=== PATIENT | male | born 1945 | race Caucasian/White ===

== ENCOUNTER 2017-11-23 17:11 | Emergency (ER) | payer MEDICARE, OTHER ==
[2017-11-23] MEDS ORDERED: Lidocaine 2% Jelly 10 ML Urojet MUCMEM ONE (17:58)
--- NOTE | 2017-11-23 18:01 | EDM.PDOC ---
ED HPI GENERAL MEDICAL PROBLEM - General Chief Complaint: Genitourinary Problem Stated Complaint: POSS. 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 Tabor. He had seen Dr. Tabor in clinic this morning lab work identified him to have significant renal insufficiency with a creatinine of 6.6 and a BUN of 70. Dr. Tabor appreciated lower abdominal fullness and was concerned that he may be in urinary retention. Patient reports that he is able to void but does to have a feeling of incomplete emptying of his urinary bladder probably for the last 3 months. No abdominal pain. Some issues with constipation lately which have been unusual for him. He said previous appendectomy. He denies any nausea vomiting denies feeling lightheaded or dizzy. He takes no medication other than what was recently prescribed to him. He had a 7 day course of Cipro 500 mg daily started 2 weeks ago for one week. He was started back on Cipro today because of some burning on urination which precipitated today's investigations. Once he starts to void the burning goes away. He thought the at the initial dose of Cipro did in fact improve symptoms for short period of time patient has nocturia about 3- 4 times per night. Recognizes that his pants feel tight across his lower abdomen. Reported weight loss of 12 pounds in the last 3 months. Usually takes no medications. He was started on Cipro 250 mg twice a day today and has taken his first tablet Onset: Unknown/Unsure (He believes that he's been struggling a bit with passage of urine since July of this year. Addend applied to have significant renal insufficiency today by lab tests done at [facility] Onset Date: 11/23/17 Duration: Week(s): Location: Reports: Other (Pain with initiation of voiding.) Quality: Reports: Burning Severity: Moderate (Urinary burning discomfort just at the initiation avoiding the last few days) Worsens with: Reports: None Context: Denies: Activity, Exercise, Lifting, Sick Contact, Trauma, Other Associated Symptoms: Reports: Loss of Appetite, Other (Feels that his lower abdomen is mildly distended.Pants don't fit quite so well. Is tight.). Denies: Confusion, Chest Pain, Cough, cough w sputum, Diaphoresis, Fever/Chills, Headaches, Malaise, Nausea/Vomiting, Rash, Seizure, Shortness of Breath, Syncope , Weakness Treatments [employer]: Reports: Other (see below) (Currently started on Cipro 500 mg daily today) - Related Data Allergies Allergy/AdvReac Type Severity Reaction Status Date / Time amoxicillin [From Augmentin] Allergy Rash Verified 11/23/17 17:18 clavulanic acid Allergy Rash Verified 11/23/17 17:18 [From Augmentin] Home Meds: Home Meds . [No Known Home Meds] 11/23/17 [History] Past Medical History HEENT History: Reports: Impaired Vision Genitourinary History: Reports: Prostate Disorder (By history has benign prostatic hypertrophy.), Other (See Below) (Suspect recent problems with prostatitis causing current symptoms) - Past Surgical History HEENT Surgical History: Reports: Tonsillectomy GI Surgical History: Reports: Appendectomy Social & Family History - Tobacco Use Smoking Status *Q: Current Every Day Smoker Years of Tobacco use: 20 Packs/Tins Daily: 0.5 - Caffeine Use Caffeine Use: Reports: Coffee - Recreational Drug Use Recreational Drug Use: No - Living Situation & Occupation Living situation: Reports: Occupation: Retired ED ROS GENERAL - Review of Systems Review Of Systems: See Below Constitutional: Reports: Weight Loss (Reports about a 12 pound weight loss over the last 3 months). Denies: Fever, Chills, Malaise, Weakness, Fatigue HEENT: Reports: Glasses Respiratory: Reports: No Symptoms Cardiovascular: Reports: No Symptoms Endocrine: Reports: No Symptoms GI/Abdominal: Reports: Constipation, Decreased Appetite (Location part because patient which is unusual for him over the last few weeks.), Distension (Feels his lower abdomen is distended and pants feel tight.). Denies: Difficulty Swallowing, Flatus, Hematemesis, Hematochezia : Reports: Frequency, Other (Feeling of incomplete bladder emptying. Nocturia 4.) Musculoskeletal: Reports: Other (Occasional joint pain low back knees and hips.) Skin: Reports: No Symptoms Neurological: Reports: No Symptoms Psychiatric: Reports: No Symptoms Hematologic/Lymphatic: Reports: No Symptoms Immunologic: Reports: No Symptoms ED EXAM, RENAL/ - Physical Exam Exam: See Below Exam Limited By: No Limitations General Appearance: Alert, WD/WN, No Apparent Distress, Other (Appears a little pallid and sallow in color.) Eye Exam: Bilateral Eye: Normal Inspection, Other (Peripheral margins are white bilaterally.) Throat/Mouth: Normal Inspection, Normal Lips, Normal Teeth, Normal Gums, Normal Oropharynx Head: Atraumatic, Normocephalic Neck: Normal Inspection, Supple, Non-Tender, Full Range of Motion. No: Lymphadenopathy (L), Lymphadenopathy (R) Respiratory/Chest: No Respiratory Distress, Lungs Clear, Normal Breath Sounds, No Accessory Muscle Use Cardiovascular: Normal Peripheral Pulses, Regular Rate, Rhythm, No Edema, No Gallop, No Murmur, No Rub GI/Abdominal: No Organomegaly, No Abnormal Bruit, No Mass, Pelvis Stable, Distended (Patient has a distended lower abdomen and firm palpation and urinary bladder clinically is palpable about 2 cm above the umbilicus. Dull to percussion from the umbilicus to the pubic symphysis.), Abnormal Bowel Sounds ( Bowel sounds are present but decreased from normal), Other (He has only slight discomfort on firm palpation of his clinically full urinary bladder.) (Male) Exam: Circumcised Back Exam: Normal Inspection, Full Range of Motion. No: CVA Tenderness (L), CVA Tenderness (R) Extremities: Normal Inspection, Normal Range of Motion, Non-Tender, No Pedal Edema, Other (Hands are white with lack of any color to his palmar creases.) Neurological: Alert, Oriented, CN II-XII Intact, Normal Cognition, Normal Gait Psychiatric: Normal Affect, Normal Mood Skin Exam: Warm, Dry, Intact, Normal Color, No Rash Course - Vital Signs Last Recorded V/S: Last Vital Signs Temp 36.6 C 11/23/17 17:16 Pulse 103 H 11/23/17 17:16 Resp 18 11/23/17 17:16 BP 155/78 H 11/23/17 17:16 Pulse Ox 100 11/23/17 17:16 - Orders/Labs/Meds Orders: Active Orders 24 hr Category Date Time Status Bladder Scan [RC] ASDIRECTED Care 11/23/17 17:57 Active EKG Documentation Completion [RC] STAT Care 11/23/17 19:08 Active Insert Harkins Catheter [Insert Urinary Catheter] [OM.PC] Care 11/23/17 18:00 Ordered Q24H Urinary Catheter Assessment [RC] ASDIRECTED Care 11/23/17 18:00 Active CULTURE URINE [RM] Stat Lab 11/23/17 20:08 Ordered Sodium Chloride 0.9% [Normal Saline] 1,000 ml Med 11/23/17 18:15 Active IV ASDIRECTED cefTRIAXone [Rocephin] 2 gm Med 11/23/17 20:10 Active Sodium Chloride 0.9% [Normal Saline] 100 ml IV ONETIME Medication Orders Sodium Chloride (Normal Saline) 1,000 mls @ 100 mls/hr IV ASDIRECTED [facility] Last Admin: 11/23/17 18:10 Dose: 100 mls/hr Ceftriaxone Sodium 2 gm/ (Sodium Chloride) 100 mls @ 100 mls/hr IV ONETIME ONE Stop: 11/23/17 21:09 Last Admin: 11/23/17 20:15 Dose: 100 mls/hr Labs: Laboratory Tests 11/23/17 11/23/17 11/23/17 Range/Units 18:25 19:25 19:25 WBC 7.59 (4.23-9.07) K/mm3 RBC 2.52 L (4.63-6.08) M/mm3 Hgb 6.9 L* (13.7-17.5) gm/L Hct 22.2 L (40.1-51.0) % MCV 88.1 (79.0-92.2) fl MCH 27.4 (25.7-32.2) pg MCHC 31.1 L (32.2-35.5) g/dl RDW Std Deviation 59.4 H (35.1-43.9) fL Plt Count 370 H (163-337) K/mm3 MPV 9.1 L (9.4-12.3) fl Neutrophils % (Manual) 78 H (40-60) % Band Neutrophils % 0 (0-10) % Lymphocytes % (Manual) 11 L (20-40) % Atypical Lymphs % 0 % Monocytes % (Manual) 5 (2-10) % Eosinophils % (Manual) 5 (0.8-7.0) % Basophils % (Manual) 1 (0.2-1.2) Platelet Estimate Adequate Plt Morphology Comment Normal Hypochromasia 1+ slight Poikilocytosis 2+ moderate Anisocytosis 1+ slight Microcytosis 1+ slight RBC Morph Comment Not Reportable Sodium 138 (136-145) mEq/L Potassium 5.4 H (3.5-5.1) mEq/L Chloride 110 H (98-107) mEq/L Carbon Dioxide 18 L (21-32) mEq/L Anion Gap 15.4 H (5-15) BUN 75 H (7-18) mg/dL Creatinine 6.4 H (0.7-1.3) mg/dL Est Cr Clr Drug Dosing 10.78 mL/min Estimated GFR (MDRD) 9 (>60) mL/min BUN/Creatinine Ratio 11.7 L (14-18) Glucose 92 (83-115) mg/dL Calcium 8.3 L (8.5-10.1) mg/dL Total Bilirubin 0.2 (0.2-1.0) mg/dL AST 12 L (15-37) U/L ALT 16 (16-63) U/L Alkaline Phosphatase 108 (46-116) U/L C-Reactive Protein 6.4 H* (<1.0) mg/dL Total Protein 7.1 (6.4-8.2) g/dl Albumin 2.2 L (3.4-5.0) g/dl Globulin 4.9 gm/dL Albumin/Globulin Ratio 0.5 L (1-2) PSA Screen (0.0-4.0) ng/mL Urine Color Yellow (Yellow) Urine Appearance Clear (Clear) Urine pH 6.0 (5.0-8.0) Ur Specific [place] 1.020 (1.005-1.030) Urine Protein 1+ H (Negative) Urine Glucose (UA) Negative (Negative) Urine Ketones Negative (Negative) Urine Occult Blood 2+ H (Negative) Urine Nitrite Negative (Negative) Urine Bilirubin Negative (Negative) Urine Urobilinogen 0.2 (0.2-1.0) Ur Leukocyte Esterase 2+ H (Negative) Urine RBC 10-20 H (0-5) /hpf Urine WBC 10-20 H (0-5) /hpf Urine WBC Clumps Rare (NOT SEEN) /hpf Ur Epithelial Cells 0-5 (0-5) /hpf Urine Bacteria Moderate H (FEW) /hpf Urine Mucus Few (FEW) /hpf 09/24/18 Range/Units 19:25 WBC (4.23-9.07) K/mm3 RBC (4.63-6.08) M/mm3 Hgb (13.7-17.5) gm/L Hct (40.1-51.0) % MCV (79.0-92.2) fl MCH (25.7-32.2) pg MCHC (32.2-35.5) g/dl RDW Std Deviation (35.1-43.9) fL Plt Count (163-337) K/mm3 MPV (9.4-12.3) fl Neutrophils % (Manual) (40-60) % Band Neutrophils % (0-10) % Lymphocytes % (Manual) (20-40) % Atypical Lymphs % % Monocytes % (Manual) (2-10) % Eosinophils % (Manual) (0.8-7.0) % Basophils % (Manual) (0.2-1.2) Platelet Estimate Plt Morphology Comment Hypochromasia Poikilocytosis Anisocytosis Microcytosis RBC Morph Comment Sodium (136-145) mEq/L Potassium (3.5-5.1) mEq/L Chloride (98-107) mEq/L Carbon Dioxide (21-32) mEq/L Anion Gap (5-15) BUN (7-18) mg/dL Creatinine (0.7-1.3) mg/dL Est Cr Clr Drug Dosing mL/min Estimated GFR (MDRD) (>60) mL/min BUN/Creatinine Ratio (14-18) Glucose (83-115) mg/dL Calcium (8.5-10.1) mg/dL Total Bilirubin (0.2-1.0) mg/dL AST (15-37) U/L ALT (16-63) U/L Alkaline Phosphatase (46-116) U/L C-Reactive Protein (<1.0) mg/dL Total Protein (6.4-8.2) g/dl Albumin (3.4-5.0) g/dl Globulin gm/dL Albumin/Globulin Ratio (1-2) PSA Screen 1.9 (0.0-4.0) ng/mL Urine Color (Yellow) Urine Appearance (Clear) Urine pH (5.0-8.0) Ur Specific [place] (1.005-1.030) Urine Protein (Negative) Urine Glucose (UA) (Negative) Urine Ketones (Negative) Urine Occult Blood (Negative) Urine Nitrite (Negative) Urine Bilirubin (Negative) Urine Urobilinogen (0.2-1.0) Ur Leukocyte Esterase (Negative) Urine RBC (0-5) /hpf Urine WBC (0-5) /hpf Urine WBC Clumps (NOT SEEN) /hpf Ur Epithelial Cells (0-5) /hpf Urine Bacteria (FEW) /hpf Urine Mucus (FEW) /hpf Meds: Medications Generic Name Dose Route Start Last Admin Trade Name Freq PRN Reason Stop Dose Admin Sodium Chloride 1,000 mls @ 100 mls/hr 11/23/17 18:15 11/23/17 18:10 Normal Saline IV 100 mls/hr ASDIRECTED TOM Administration Ceftriaxone Sodium 2 gm/ 100 mls @ 100 mls/hr 11/23/17 20:10 11/23/17 20:15 Sodium Chloride IV 11/23/17 21:09 100 mls/hr ONETIME ONE Administration Discontinued Medications Generic Name Dose Route Start Last Admin Trade Name Freq PRN Reason Stop Dose Admin Lidocaine HCl 10 ml 11/23/17 17:58 11/23/17 18:10 Xylocaine 2% Jelly MUCMEM 11/23/17 17:59 10 ml ONETIME ONE Administration - Radiology Interpretation Free Text/Narrative:: 72-year-old male presents to the ED at the request of his primary care physician Dr. Jaye Tabor. He was seen earlier this morning in the clinic due to painful initiation of voiding. No symptoms 2 weeks ago and was treated with a seven-day course of Cipro dosage unknown. Lab work done today and he hasn 't had lab work done for many months. Labs revealed that he was suffering significant renal insufficiency with a creatinine of 6.6 and a BUN of 70. He also was anemic with hemoglobin of 7.9. And hematocrit of 25.1. MCV was normal at 89.3. Was apparently 7.2. Patient is not diabetic. Glucose today was 104. Bicarbonate was 18. Slightly low calcium was 8.4. Chloride was 112 slightly high. Serum potassium was reported to be 5.1. Sodium was 141. Albumin slightly low at 3.3. Alkaline phosphatase is 1:15 ALT is 22. AST of 13 total bilirubin was less than 0.5. Protein was 7.3 Platelet count elevated at 405,000 i.e. essential thrombocytosis. My examination his urinary bladder is 2 cm above his umbilicus compatible with obstructive uropathy as a cause of his renal insufficiency. He takes no medications and rarely takes even on Aleve tablet. He is not prone to hypertension although he is hypertensive and intensive today at presentation to the clinic. Been having troubles with hemorrhoids and intermittent right rectal bleeding which is another reason he went to the clinic today. Plan I will have him void and then do a postvoid bladder scan with plans to insert a Harkins catheter with the use of Urojet lidocaine. CT scan of abdomen and pelvis will be performed. He requires an ECG due to hyperkalemia. I will repeat most of his labs including urinalysis. - Re-Assessments/Exams Free Text/Narrative Re-Assessment/Exam: 11/23/17 19:16 so far patient has had 1600 mils of urine out. 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 IV currently is normal saline at 100 mils per hour labs are pending. Nurse reports that he excepted a 14 [place] coud- tipped catheter without any signs of obstruction. 11/23/17 20:14 Labs are back showing a total white count of 7.59 with 70% neutrophils and no bands reported. Hemoglobin is low at 6.9 with hematocrit of 22.2. MCV is 88.1. And 70,000. The micro-reveals 1+ hypochromasia 2+ blood, cytosis 1+ anisocytosis and 1+ microcytosis. Sodium is 138 potassium is mildly elevated at 5.4. Chloride is elevated at 110 with a bicarbonate of 18. Anion gap is 15.4 BUN is 75 with a creatinine of 6.4. eGFR is estimated at 9 Total protein is 7.1. Albumin fraction is low at 2.2. A screen shows it to be 1.9. Urinalysis shows 1+ proteinuria 2+ occult blood 2+ leukocyte esterase 10-20 RBCs and 10-20 WBCsper hpf. Urine WBC clumps are appreciated your epithelial cells is negative. Moderate bacteria appreciated. Urine culture ordered. We'll give him 2 g of Rocephin IV. 11/23/17 20:[address] Arellano hospitalist at [facility] in [place] and he is accepted care of Mr. See. She'll be transported to that hospital per private vehicle since we do not have ambulance availability at this time. His can drive him. He is saline lock will be left in place. His Harkins catheter will remain connected to the urometer. Departure - Departure Time of Disposition: 20:53 Disposition: DC/Tfer to Acute Hospital 02 Condition: Fair Clinical Impression: Chronic renal insufficiency, stage V, Obstructive uropathy, Renal lithiasis, Hyperkalemia, UTI, Urinary tract infectious disease Anemia Qualifiers: Anemia type: due to chronic kidney disease Chronic kidney disease stage: stage 5, not on chronic dialysis Qualified Code(s): N18.5 - Chronic kidney disease, stage 5 - Discharge Information *PRESCRIPTION DRUG MONITORING PROGRAM REVIEWED*: No *COPY OF PRESCRIPTION DRUG MONITORING REPORT IN PATIENT ELVIA: No Referrals: Jaye Tabor MD [Primary Care Provider] - Forms: ED Department Discharge Additional Instructions: Travel to [facility] in [place] [facility] with plans to be admitted to an institution for further investigations of renal insufficiency and obstructive uropathy. - My Orders Last 24 Hours: My Active Orders 11/23/17 17:57 Bladder Scan [RC] ASDIRECTED 11/23/17 18:00 Insert Harkins Catheter [Insert Urinary Catheter] [OM.PC] Q24H Urinary Catheter Assessment [RC] ASDIRECTED 11/23/17 18:15 Sodium Chloride 0.9% [Normal Saline] 1,000 ml IV ASDIRECTED 11/23/17 19:08 EKG Documentation Completion [RC] STAT 11/23/17 20:08 CULTURE URINE [RM] Stat 11/23/17 20:10 cefTRIAXone [Rocephin] 2 gm Sodium Chloride 0.9% [Normal Saline] 100 ml IV ONETIME - Assessment/Plan Last 24 Hours: My Active Orders 11/23/17 17:57 Bladder Scan [RC] ASDIRECTED 11/23/17 18:00 Insert Harkins Catheter [Insert Urinary Catheter] [OM.PC] Q24H Urinary Catheter Assessment [RC] ASDIRECTED 11/23/17 18:15 Sodium Chloride 0.9% [Normal Saline] 1,000 ml IV ASDIRECTED 11/23/17 19:08 EKG Documentation Completion [RC] STAT 11/23/17 20:08 CULTURE URINE [RM] Stat 11/23/17 20:10 cefTRIAXone [Rocephin] 2 gm Sodium Chloride 0.9% [Normal Saline] 100 ml IV ONETIME
[2017-11-23] MEDS ORDERED: Sodium Chloride 0.9% 1,000 ML IV SCH (18:15)
--- NOTE | 2017-11-23 19:35 | CT ---
CT abdomen and pelvis Technique: Multiple axial sections were obtained from above the dome of the diaphragm inferiorly through the pubic symphysis. Intravenous and oral contrast was not utilized. Findings: Right ureter is dilated. There is a calcification being seen within the bladder measuring 6 mm possibly relating to recently passed ureteral stone causing the right ureteral dilatation. There is diffuse bladder wall thickening being seen. Air is identified within the bladder with urinary catheter in place presumably due to recent instrumentation. 2 cysts are seen within the right kidney measuring 2.5 cm and 1.9 cm. Left kidney shows nonobstructing calculi within the lower pole measuring 1.4 cm in combined dimension. Small portion of the visualized lung bases are clear. Small cyst noted within the anterior right lobe of the liver measuring 1.1 cm in size. Multiple other smaller low density lesions are seen within the liver most likely due to additional cysts. Spleen appears within normal limits. Adrenal glands show no nodule. No discrete pancreatic abnormality is seen. Gallbladder contains no calcified gallstones. Aorta shows atherosclerotic calcification which continues into the iliac vessels. Distal aorta is slightly aneurysmal with AP dimension of 2.7 cm. No retroperitoneal adenopathy is seen. No mesenteric abnormalities are seen. No pelvic mass or adenopathy is seen. Appendix is not visualized with certainty. Bone window settings were reviewed which appear within normal limits for the patient's age. Impression: 1. Right ureteral dilatation with 6 mm calcification within the right bladder possibly due to recently passed right ureteral stone as an etiology. 2. Diffuse bladder wall thickening most likely from chronic bladder outlet obstruction if patient has no signs of cystitis. 3. Air within the bladder with urinary catheter being seen within the bladder. Air most likely due to recent instrumentation. 4. 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 5. Nothing acute is otherwise seen. Diagnostic code #3
[2017-11-23] MEDS ORDERED: cefTRIAXone 2 GM in Sodium Chloride 0.9% 100 ML IV ONE (20:10)
== END 2017-11-23 22:48 ==
LOC: JD.ED 17:11
DX: N18.5 Chronic kidney disease, stage 5 (principal); D63.1 Anemia in chronic kidney disease; N13.9 Obstructive and reflux uropathy, unspecified; N20.0 Calculus of kidney; N39.0 Urinary tract infection, site not specified; E87.5 Hyperkalemia; Z90.49 Acquired absence of other specified parts of digestive tract; Z88.1 Allergy status to other antibiotic agents; F17.210 Nicotine dependence, cigarettes, uncomplicated
CPT/HCPCS: 36415; 51702; 51798; 74176; 80053; 81001; 85007; 85027; 86140; 87086; 93005; 96361; 96365; 99285; G0103; J0696; J7030; J7040; 93010

== ENCOUNTER 2023-11-14 11:45 | Emergency (ER) | payer MEDICARE, OTHER ==
[2023-11-14 12:38] LABS: BASOPHILS PERCENT AUTO 0.3 % (0.0-1.0); EOSINOPHILS ABSOLUTE AUTO 0.1 K/mm3 (0.0-0.4); EOSINOPHILS PERCENT AUTO 1.2 % (0.0-6.0); HEMATOCRIT 40.3 % (42.0-52.0); HEMOGLOBIN 13.5 gm/dl (14.0-18.0); IMMATURE GRAN ABSOLUTE AUTO 0.01 K/mm3 (0.00-0.05); IMMATURE GRAN PERCENT AUTO 0.2 % (0.0-0.4); LYMPHOCYTES ABSOLUTE AUTO 1.3 K/mm3 (1.0-4.8); LYMPHOCYTES PERCENT AUTO 22.5 % (24.0-44.0); MEAN CORPUSCULAR HEMOGLOBIN 30.6 pg (28.0-32.0); MEAN CORPUSCULAR HGB CONC 33.5 g/dl (32.0-36.0); MEAN CORPUSCULAR VOLUME 91.4 fl (83.0-99.0); MONOCYTES ABSOLUTE AUTO 0.4 K/mm3 (0.0-0.8); MONOCYTES PERCENT AUTO 6.8 % (0.0-8.0); PLATELET COUNT,PLT 155 K/mm3 (150-400); RED BLOOD CELL COUNT 4.41 M/mm3 (4.52-5.90); WHITE BLOOD CELL COUNT,WBC 5.74 K/mm3 (3.9-11.3)
[2023-11-14 13:03] LABS: A/G RATIO 1.1 (1-2); ALBUMIN 3.6 g/dl (3.4-5.0); ANION GAP 9.6 (5-15); BILIRUBIN TOTAL 0.6 mg/dL (0.2-1.0); BUN/CREATININE RATIO 13.5 (14-18); CALCIUM 9.4 mg/dL (8.5-10.1); CREATININE 1.7 mg/dL (0.7-1.3); EST CRCL DRUG DOSING (CG) 33.43 mL/min; POTASSIUM,K 3.6 mEq/L (3.5-5.1)
[2023-11-14 13:16] LABS: LACTIC ACID 0.9 mmol/L (0.4-2.0)
[2023-11-14 14:34] LABS: APPEARANCE,URINE CLOUDY (Clear); BILIRUBIN,URINE 3+ (Negative); COLOR,URINE AMBER (Yellow); GLUCOSE,URINE NEGATIVE (Negative); KETONES,URINE TRACE (Negative); LEUKOCYTE ESTERASE,URINE 3+ (Negative); NITRITE,URINE NEGATIVE (Negative); OCCULT BLOOD,URINE 3+ (Negative); PROTEIN,URINE 3+ (Negative)
[2023-11-14 14:35] LABS: RBC,URINE TOO NUMEROUS TO CNT /hpf (0-5); SQUAMOUS EPITHELIAL CELLS,UR 0-5 /hpf (0-5); WBC,URINE 30-40 /hpf (0-5)
[2023-11-14 14:36] LABS: BACTERIA,URINE MODERATE /hpf (FEW); MUCUS,URINE FEW /hpf (FEW)
[2023-11-14] MEDS: Sodium Chloride 0.9% 1,000 ML IV SCH (16:08)
[2023-11-14] MEDS: Levofloxacin/Dextrose 5%-Water 750 MG in Premix Bag 1 BAG IV ONE (16:09)
[2023-11-14] MEDS: Iopamidol 755 Mg/ML 100 ML Bottle IVPUSH ONE (16:28)
[2023-11-14] MEDS: Sodium Chloride 0.9% 10 ML Syringe FLUSH ONE (16:28)
== END 2023-11-14 18:30 | disposition home or self-care (01) ==
LOC: JD.ED 11:45
DX: N20.0 Calculus of kidney (principal); N30.01 Acute cystitis with hematuria; I71.40 Abdominal aortic aneurysm, without rupture, unspecified; I10 Essential (primary) hypertension; Z90.49 Acquired absence of other specified parts of digestive tract; F17.210 Nicotine dependence, cigarettes, uncomplicated; Z79.899 Other long term (current) drug therapy; Z79.82 Long term (current) use of aspirin; Z88.0 Allergy status to penicillin; Z88.8 Allergy status to other drugs, medicaments and biological substances
CPT/HCPCS: 36415; 74177; 80053; 81001; 83605; 85025; 87086; 96365; 96366; 99284; J1956; J3490; J7030; Q9967